=== PATIENT | female | born 1990 | race Two or more races ===

== ENCOUNTER 2018-08-19 07:52 | Outpatient (CLI) | payer OTHER ==
--- NOTE | 2018-08-19 14:13 | MRI Report ---
Reason: PAIN IN RIGHT KNEE Procedure Date: 08/19/2018 Accession Number: [id number] / [id number] Procedure: MRI - Knee RT W/O CPT Code: FULL RESULT: EXAM: RIGHT KNEE MRI WITHOUT CONTRAST EXAM DATE: 08/19/2018 08:45 AM. CLINICAL HISTORY: Pain in right knee. COMPARISON: None. TECHNIQUE: Multiplanar, multisequence T1-weighted and fluid-sensitive sequences of the knee without contrast. Other: None. FINDINGS: Bones: No fractures or subluxations. No marrow edema. No bone lesions. Benign red marrow reconversion. Articular Cartilage: Unremarkable. Medial Meniscus: The medial meniscus is intact. Lateral Meniscus: The lateral meniscus is intact. Cruciate Ligaments: The anterior and posterior cruciate ligaments are intact. Collateral Ligaments: The medial collateral and lateral collateral ligamentous structures are intact. Tendons: The quadriceps, patellar, semimembranosus, and popliteus tendons are unremarkable. Musculature: No edema or fatty atrophy. Other: No effusion. Multilocular popliteal cyst extending both superiorly and inferiorly from the joint. No loose bodies. The medial and lateral retinacula are intact. The subcutaneous tissues and fat pads are unremarkable. IMPRESSION: 1. Benign red marrow reconversion. 2. Medial and lateral menisci are unremarkable. Cruciate and collaterals are also normal. 3. Multilocular popliteal cyst extends both superiorly and inferiorly from the knee joint. [facility] MUSCULOSKELETAL RADIOLOGY SECTION
== END 2018-08-19 07:53 | disposition home or self-care (01) ==
LOC: DI 07:52
PROVIDERS: ATTEND Family Medicine
DX: M25.561 Pain in right knee (principal); M71.21 Synovial cyst of popliteal space [Baker], right knee

== ENCOUNTER 2018-11-16 08:15 | Outpatient (CLI) | payer OTHER ==
--- NOTE | 2018-11-16 14:13 | MRI Report ---
Reason: PAIN IN LEFT KNEE Procedure Date: 11/16/2018 Accession Number: [id number] / [id number] Procedure: MRI - Knee LT W/O CPT Code: FULL RESULT: EXAM: LEFT KNEE MRI WITHOUT CONTRAST EXAM DATE: 11/16/2018 09:03 AM. CLINICAL HISTORY: PAIN IN LEFT KNEE. COMPARISON: None. TECHNIQUE: Multiplanar, multisequence T1-weighted and fluid-sensitive sequences of the knee without contrast. Other: None. FINDINGS: Ligaments: The anterior cruciate, posterior cruciate, medial collateral, and lateral collateral ligaments are intact and unremarkable. 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 Lateral retropatellar cartilage is preserved. Femoral trochlear cartilage is preserved. No patellofemoral osteoarthritis. Patellofemoral alignment is anatomic. The distal quadriceps and patellar tendons are normal. The medial and lateral patellofemoral retinacula are normal. Medial compartment: The medial meniscus is intact. Medial compartment cartilage is preserved. No medial compartment osteoarthritis. Lateral compartment: The lateral meniscus is intact. Lateral compartment cartilage is preserved. No lateral compartment osteoarthritis. Soft tissues: No significant knee effusion or popliteal cyst. IMPRESSION: 1. Mild fibrillation of the retropatellar cartilage is most pronounced medially. Tiny portions of this are full-thickness though most is partial thickness. Femoral trochlear cartilage is preserved and there is no patellofemoral osteoarthritis. 2. Normal medial and lateral compartments. 3. Intact ligaments. [facility] MUSCULOSKELETAL RADIOLOGY SECTION
== END 2018-11-16 08:16 | disposition home or self-care (01) ==
LOC: DI 08:15
PROVIDERS: ATTEND Family Medicine
DX: M25.562 Pain in left knee (principal)

== ENCOUNTER 2019-07-29 07:04 | Day surgery (SDC) | payer OTHER ==
[~2019-07-29 07:04] MED LIST: CEFAZOLIN SODIUM IN 0.9 % NACL 2 GM/100 ML BAG IV ONE
[2019-07-29] MEDS ORDERED: DEXAMETHASONE 4 MG/ML VIAL IVP ONE (07:05)
[2019-07-29] MEDS ORDERED: GLYCOPYRROLATE 1 MG/5 ML VIAL IVP ONE (07:05)
[2019-07-29] MEDS ORDERED: MIDAZOLAM 2 MG/2 ML VIAL IVP ONE (07:05)
[2019-07-29] MEDS ORDERED: PROPOFOL 200 MG/20 ML VIAL IVP ONE (07:05)
[2019-07-29] MEDS ORDERED: fentaNYL 100 MCG/2 ML VIAL IVP ONE (07:05)
[2019-07-29] MEDS ORDERED: EPINEPHrine 1 MG/ML AMP ONE (07:12)
[2019-07-29] MEDS ORDERED: LACTATED RINGERS 1,000 ML IV ONE (07:31)
--- NOTE | 2019-07-29 07:37 | ANESTHESIA ---
Pre-Anesthesia VS, & Labs - Diagnosis left knee pain/ patellar chondromalasia - Procedure left knee arthroscopy Vital Signs: Temp Pulse Resp BP Pulse Ox 36.2 C L 82 16 125/79 100 07/29/19 07:18 07/29/19 07:18 07/29/19 07:18 07/29/19 07:18 07/29/19 07:18 Height 5 ft 6 in Weight (kg) 84.1 kg - Is Patient ?: No Home Medications and Allergies Home Medications: Ambulatory Orders Cholecalciferol [Vitamin D3] 5,000 unit PO 07/20/19 SUMAtriptan [Imitrex] 25 PRN 07/20/19 Zolpidem Tartrate [Ambien] 10 mg PO PRN 07/20/19 Cholecalciferol [Vitamin D3] 5,000 unit PO 07/20/19 SUMAtriptan [Imitrex] 25 PRN 07/20/19 Zolpidem Tartrate [Ambien] 10 mg PO PRN 07/20/19 Allergies/Adverse Reactions: Allergies Allergy/AdvReac Type Severity Reaction Status Date / Time No Known Drug Allergies Allergy Verified 07/20/19 13:10 Anes History & Medical History - Anesthetic History Anesthesia Complications: reports: No previous complications Family history of Anesthesia Complications: Denies Family history of Malignant Hyperthermia: Denies - Medical History Cardiovascular: reports: None Pulmonary: reports: None Gastrointestinal: reports: None Urinary: reports: None Neuro: reports: None Musculoskeletal: reports: Other Endocrine/Autoimmune: reports: None Blood Disorders: reports: None Skin: reports: None Smoking Status: Never smoker Psychosocial: reports: No issues indicated - Surgical History Orthopedic: Other (bilateral knee scopes) Exam General: Alert, Oriented x3, Cooperative, No acute distress Dental: WNL Mouth Openin Fingerbreadth Neck Mobility: Normal Mallampati classification: I Thyromental Distance: 4-6 cm Respiratory: Lungs clear, Normal breath sounds, No respiratory distress, No accessory muscle use Cardiovascular: Regular rate, Normal S1, Normal S2, No murmurs Abdomen: Normal bowel sounds, Soft, No tenderness, No hepatospenomegaly, No masses Extremities: No clubbing, No cyanosis, No edema, Normal pulses, No tenderness/swelling Neurological: Normal gait, Normal speech, Strength at 5/5 X4 ext, Normal tone, Sensation intact, Cranial nerves 3-12 NL, Reflexes 2+ Mental/Cognitive Status: Alert/Oriented X3, Normal for patient Cognitive Status: Within normal limits Plan Anesthesia Type: General Consent for Procedure(s) Verified and Reviewed: Yes Code Status: Attempt Resuscitation ASA classification: 1-Healthy patient Is this case an emergency?: No
[2019-07-29] MEDS ORDERED: ROPIVACAINE 0.5% PF 20 ML VIAL ONE (07:43)
[2019-07-29 07:49] LABS: HCG UR QUAL NEGATIVE
[2019-07-29] MEDS ORDERED: BUPIVACAINE 0.25% PF 30 ML VIAL ONE (08:21)
[2019-07-29] MEDS ORDERED: EPINEPHrine 1 MG/ML AMP IR ONE ×2 (09:16)
[2019-07-29] MEDS ORDERED: BUPIVACAINE 0.25% PF 30 ML VIAL SUBQ ONE ×2 (09:16→10:00)
[2019-07-29] MEDS ORDERED: ONDANSETRON 4 MG/2 ML VIAL IVP PRN (10:32)
[2019-07-29] MEDS ORDERED: oxyCODONE 5 MG TABLET PO PRN (10:32)
--- NOTE | 2019-07-29 10:53 | OPERATIVE REPORT ---
Operative Report - General Procedure Date: 07/29/19 - Procedure Note Estimated Blood Loss (mL): 1 - Other Other Information/Narrative: Date of Procedure: 29 July 2019 Planned Procedure: Left knee arthroscopy, patella shaving chondroplasty Pre-op diagnosis: Left knee patellar chondromalacia Procedure performed: Left knee arthroscopy, patellar shaving chondroplasty Post-op diagnosis: Left knee patella chondromalacia Primary Surgeon: MARGARET STROUD Secondary Surgeon: Killian Anesthesia: General LMA plus regional EBL: 1 ml Tourniquet: 46 minutes, left thigh at 250mmHg. Arthroscopic findings left knee: 1. Patella: Full-thickness chondral defect with unstable chondral flaps along the medial patella facet, crossing the median ridge into the lateral patella facet 2. Trochlea: Mild grooving 3. Medial Compartment: Meniscal root intact, no meniscal tears, tibial and femoral cartilage normal-appearing 4. Lateral Compartment: Meniscal root intact, no meniscal tears, femoral cartilage normal-appearing, tibial cartilage with sagittal grooving without instability 5. ACL and PCL: Intact, intact COMPLICATIONS: none IMPLANTS: None Indications for surgery: 29-year-old female presents with approximately 9-year history of bilateral knee pain. She has undergone extensive nonoperative management to include physical therapy, steroid injections, oral nonsteroidal medications. Her right knee improved with nonoperative treatment however she continued to have left knee pain primarily in the retropatellar region, worse with stairs, prolonged flexion etc. The risks, benefits, and alternatives were discussed. Risks include pain, bleeding, infection, damage to nearby structures and cartilage, lack of symptom relief, need for further surgery, DVT, PE, stroke, and . Written consent was obtained. Procedure Details: The patient was met in the pre-operative hold area. We reviewed risks, benefits, and alternatives to surgery. Consent was signed. The patient verified the surgical site as the left knee. The patient then met with anesthesia and a regional block was placed and she was brought back to the operating room. The patient was placed supine on the operating table. A general anesthetic was administered and LMA was placed. A well-padded tourniquet was placed on the left thigh. The left lower extremity was then prepped and draped in the usual sterile fashion. A surgical timeout was then performed. The correct patient, the correct procedure, and the correct surgical site were confirmed by everyone in the room. Perioperative antibiotics had been administered. After surgical timeout and administration of antibiotics the Escmarch was used to exsanguinate the left lower extremity and the tourniquet was raised. An 11 blade scalpel was used to make an anteromedial and anterolateral arthroscopic po rtal. The arthroscope was introduced into the knee and a diagnostic arthroscopy was performed with the above-stated findings. The arthroscopic sucker shaver was inserted into the knee and a chondroplasty of the patella was performed. A combination of meniscal biters and arthroscopic curettes as well as the arthroscopic sucker shaver was used to debride the cartilage to a stable rim. After debridement and chondroplasty the the size of the lesion was 15 mm from proximal to distal and 30 mm from medial to lateral. The arthroscopic instruments were then removed from the knee. The portals were closed with 3-0 Monocryl and Steri-Stripsz. 10 mL of 0.25% Marcaine was injected into the periarticular soft tissues. The tourniquet was lowered. The incisions were dressed with Xeroform gauze, 4 x 4 gauze, and ABD. The dressings were held in place with a BUDDY compression stocking. The surgical drapes were removed. The patient was awoken from anesthesia, extubated, transferred to the hospital bed, and taken to the PACU for recovery in good condition. Postoperative plan: 1. Discharge home from the same day surgery facility once the patient has met discharge criteria. 2. Advance weightbearing as tolerated, range of motion as tolerated, and wean from crutches as tolerated. 3. Return to clinic in 5-10 days for wound check. 4. Allow advancement of activities as tolerated with full clearance for all activities anticipated in 6-8 weeks postoperatively.
[2019-07-29 11:38] VITALS: BP 122/74
== END 2019-07-29 07:05 | disposition home or self-care (01) ==
LOC: SDS 07:04
PROVIDERS: ATTEND Orthopaedic Surgery
PROC: 0SBD4ZZ Excision of Left Knee Joint, Percutaneous Endoscopic Approach (ICD-10-PCS; principal; 2019-07-29 08:30)
DX: M22.42 Chondromalacia patellae, left knee (principal)
CPT/HCPCS: 81025